=== PATIENT | male | born 1975 | race Caucasian/White ===

== ENCOUNTER 2017-02-27 09:29 | Inpatient (IN) | payer OTHER ==
[2017-02-27] MEDS ORDERED: Ondansetron HCl/PF 4 MG/2 ML Vial ONE (09:44)
[2017-02-27] MEDS ORDERED: Nitroglycerin 0.4 MG TAB (25 Tab Bottle) ONE (09:58)
[2017-02-27 10:08] LABS: #Lymphocytes 0.8 thou/uL (1.20-3.40); #Monocytes 0.7 thou/uL (0.11-0.59); #Neutrophils 11.5 thou/uL (1.40-6.50); %Basophils 0.1 % (0.0-1.0); %Eosinophils 0.3 % (0.0-10.0); %Lymphocytes 6.2 % (21.0-51.0); %Monocytes 5.5 % (0.0-10.0); Hematocrit 53.7 % (42.0-52.0); Mean Platelet Volume 8.7 fL (7.4-10.4); Red Blood Cell (RBC) Count 5.99 mill/uL (4.70-6.10); White Blood Cell (WBC) Count 13.1 thou/uL (4.8-10.8)
[2017-02-27 10:27] LABS: ALT (SGPT) 25 U/L (8-55); AST (SGOT) 51 U/L (5-34); Alkaline Phosphatase 78 U/L (40-150); Anion Gap 18 mmol/L (10-20); BUN (Urea Nitrogen) 20 mg/dL (8.9-20.6); Bilirubin, Total 0.9 mg/dL (0.2-1.2); CK (CPK) 503 U/L (30-200); Calc. Creatinine Clearance 0 mL/min (70-130); Calcium 10.4 mg/dL (7.8-10.44); Carbon Dioxide 26 mmol/L (22-29); Chloride 98 mmol/L (98-107); Estimated GFR-MDRD 46; Globulin 3.8 g/dL (2.4-3.5); Lipase 13 U/L (8-78); Protein, Total 8.5 g/dL (6.0-8.3)
[2017-02-27] MEDS ORDERED: Morphine 2 MG/ML SYRINGE ONE ×2 (10:30→13:24)
--- NOTE | 2017-02-27 10:30 | RAD ---
PORTABLE CHEST: Date: 02/27/17 HISTORY: Chest pain. FINDINGS: Lungs are clear. Heart and mediastinum appear normal. Vascular markings normal. IMPRESSION: Negative portable chest. POS: [facility]
[2017-02-27] MEDS ORDERED: Heparin 5,000 UNITS/ML VIAL ONE (10:38)
[2017-02-27] MEDS ORDERED: Heparin 25,000 units/D5W 500 ML ONE (10:38)
[2017-02-27 11:01] LABS: Troponin I 12.156 ng/mL (< 0.028)
[2017-02-27] MEDS ORDERED: FLU VACC QS2017-18 36 mo. & older 0.5 ML SYRINGE IM ONE (13:15)
[2017-02-27] MEDS ORDERED: Morphine 10 MG/ML VIAL SLOW IVP SCH (13:25)
[2017-02-27] MEDS ORDERED: Ketorolac Tromethamine 30 MG/ML VIAL IVP SCH ×2 (13:30→13:45)
[2017-02-27] MEDS ORDERED: Nitroglycerin 0.4 MG TAB (25 Tab Bottle) SL PRN (14:59)
[2017-02-27] MEDS ORDERED: traMADol HCl 50 MG TAB PO PRN (14:59)
[2017-02-27] MEDS ORDERED: Acetaminophen/Codeine 30-300mg Tablet PO PRN ×2 (14:59)
[2017-02-27] MEDS ORDERED: Sodium Chloride 0.9% 200 ML IV PRN (15:00)
[2017-02-27] MEDS ORDERED: Sodium Chloride 0.9% 1,000 ML IV SCH (15:00)
[2017-02-27] MEDS ORDERED: Iopamidol 370 76% 100 ML VIAL ONE (15:53)
--- NOTE | 2017-02-27 16:14 | HP ---
REASON FOR ADMISSION: Chest pain, abnormal EKG, subsequently found to have increased troponin level . HISTORY OF PRESENT ILLNESS: Mr. Mary is a pleasant 41-year-old gentleman. He has been having ray st pain off and on for several weeks, but has been much more intense recently, this morning at about 4 in the morning. He suddenly had the onset of severe pain, which was not resolved. He came here to the emergency room. The EKG showed some ST elevation in lead II, III, AVF, as well as V5 and V6. This somewhat concave up with mild VT depression in lead II and III. Initial suspici on was that this may be pericarditis. He was given colchicine and Toradol. The patient states that when he laid down, it did not make any difference; when he took a deep breath, it did make a differ ence in the pain. The patient did not get relief initially with the Toradol or the colchicine. Tro ponin level became elevated and the decision was made to take him to the cardiac catheterization lab to look at the coronary arteries and make sure there is no coronary obstruction, resulting in EKG c hanges and chest pain along with troponin rise. PAST MEDICAL HISTORY: The patient has been stable active and healthy. No major illnesses. MEDICATIONS: No medicines. SOCIAL HISTORY: No smoking. Rare tobacco use. He initially did report the chest pain in the 7 out of scale of 10. He said, as mentioned, he had been doing okay until this morning when the pain became severe. REVIEW OF SYSTEMS: Constitutional: No significant weight gain or loss. Vision: No changes. Hear ing: No changes. Pulmonary: No cough or wheezing. Gastrointestinal: No nausea, vomiting, or vero rrhea. Skin: No rashes. Neurologic: No unilateral weakness or numbness. Psychiatric: No unusua l depression or anxiety. Hematologic: No unusual bruising. Genitourinary: No burning with urinat ion. PAST SURGICAL HISTORY: No significant past history. PAST SURGICAL HISTORY: No cardiac operations or procedures. MEDICATION: None prior to admission. PHYSICAL EXAMINATION VITAL SIGNS: Initially blood pressure was 138/86 and pulse was 80. HEENT: Eyes, sclerae nonicteric. Mouth mucous membranes moist. NECK: Supple. No lymphadenopathy. LUNGS: Clear. No wheezing, rales or rhonchi. CARDIAC: Normal S1. Normal S2. There is no murmur, rub or gallop. ABDOMEN: Soft, nontender. No hepatosplenomegaly. EXTREMITIES: Warm and dry. No clubbing, cyanosis or edema. Peripheral pulses are all intact in th e feet. LABORATORY AND X-RAY FINDINGS: EKG as outlined above. PERTINENT LABORATORY: The patient did have increased troponin and as mentioned, it was 10.7 and a f ollow up is 12.15. ASSESSMENT: 1. Chest pain, waxing and waning for several days. 2. Relatively low risk factor profile for coronary artery disease. 3. Evidence of myocardial injury based on increased troponin levels. 4. EKG which was more compatible with pericarditis, but the patient, as mentioned, did have increas ed troponin levels with ongoing pain and the pain was not a typical of pericarditis in terms of no v ariation with a breath or supine or sitting. PLAN: Decided to go to the catheterization lab to see the patient had coronary disease. Discussed risks of stroke, heart attack, IODINE allergy, loss of blood supply to the leg or kidney, stent thro mbosis, stent restenosis in the event stenting is needed. The patient understood and wished to proc eed. ADDENDUM: The patient was taken to [facility]. There was no obstructive coronary artery disease. Th e patient appears to have pericarditis and myocarditis. The apex and distal inferior wall are hypok inetic.
[2017-02-27] MEDS: Ketorolac Tromethamine 30 MG/ML VIAL IVP SCH ×2 (17:59→23:29)
[2017-02-27] MEDS ORDERED: Colchicine 0.6 MG TAB PO SCH ×2 (18:00→18:15)
[2017-02-28] MEDS ORDERED: Loperamide HCl 2 MG CAP PO SCH (03:30)
[2017-02-28] MEDS: Ketorolac Tromethamine 30 MG/ML VIAL IVP SCH (05:44)
[2017-02-28] MEDS ORDERED: Colchicine 0.6 MG TAB PO SCH (09:00)
--- NOTE | 2017-02-28 11:31 | PRG ---
DATE OF SERVICE: 02/28/2017 SUBJECTIVE: Mr. Mary is doing much better today. His chest pain went away yesterday evening arou nd 6:00. He just feels fatigued and washed out today. He does had diarrhea and abdominal discomfort. I susp ect it is probably the colchicine. PHYSICAL EXAMINATION: VITAL SIGNS: Blood pressure 106/64, pulse the most recent is recorded at 104. LUNGS: Clear. CARDIAC: Normal S1 and S2. ABDOMEN: Soft, nontender. EXTREMITIES: No edema. ASSESSMENT: 1. Pericarditis with myocardial involvement (myocarditis). 2. Renal insufficiency/acute with an estimated GFR yesterday was 1.68. 3. Nausea and diarrhea, probably related to colchicine. PLAN: 1. Change from Toradol to Etodolac. 2. Recheck creatinine. 3. Recheck a troponin level. 4. Reduce colchicine. 5. Probably home tomorrow if doing well.
[2017-02-28 11:33] LABS: Troponin I 8.789 ng/mL (< 0.028)
[2017-02-28 11:34] LABS: Anion Gap 15 mmol/L (10-20); BUN (Urea Nitrogen) 17 mg/dL (8.9-20.6); Calc. Creatinine Clearance 115 mL/min (70-130); Calcium 8.8 mg/dL (7.8-10.44); Carbon Dioxide 20 mmol/L (22-29); Chloride 103 mmol/L (98-107); Estimated GFR-MDRD 83
[2017-02-28 11:36] LABS: Band 13 % (5-11); Mean Platelet Volume 8.9 fL (7.4-10.4); Neutrophil 69 % (42-75); Reactive Lymphocytes 2 % (0-10); Red Blood Cell (RBC) Count 5.33 mill/uL (4.70-6.10); White Blood Cell (WBC) Count 9.2 thou/uL (4.8-10.8)
[2017-02-28] MEDS ORDERED: Famotidine 20 MG TAB PO SCH (12:15)
[2017-02-28 12:31] VITALS: BMI 25.2
[2017-02-28] MEDS: Etodolac ER 400 mg Tablet PO SCH (12:53)
[2017-02-28] MEDS: Diphenoxylate HCl/Atropine Tablet PO PRN (16:13)
[2017-02-28] MEDS: Loperamide HCl 2 MG CAP PO PRN (18:00)
[2017-02-28] MEDS: Colchicine 0.6 MG TAB PO SCH (20:05)
[2017-02-28] MEDS: Famotidine 20 MG TAB PO SCH (20:06)
[2017-02-28] MEDS: Ondansetron HCl/PF 4 MG/2 ML Vial IVP PRN (20:06)
[2017-03-01] MEDS: Ondansetron HCl/PF 4 MG/2 ML Vial IVP PRN ×2 (04:50→12:19)
[2017-03-01] MEDS: Diphenoxylate HCl/Atropine Tablet PO PRN ×2 (05:02→12:19)
[2017-03-01 06:07] LABS: Critical Call Chem Troponin I RESULT DECREASING; Troponin I 5.247 ng/mL (< 0.028)
[2017-03-01] MEDS ORDERED: Metoprolol Tartrate 25 MG TAB PO SCH ×3 (09:30→21:00)
--- NOTE | 2017-03-01 09:49 | PRG ---
DATE OF SERVICE: 03/01/2017 SUBJECTIVE: Mr. Mary had a very rough night last night. He had severe diarrhea and nausea, vomiting, unable to keep much down. He is not having chest pain , just feels worn out. PHYSICAL EXAMINATION: VITAL SIGNS: Heart rate is 110-115, it is sinus tachycardia. Blood pressure 110/72. LUNGS: Clear. CARDIAC: Tachycardic at rest. ABDOMEN: Soft, nontender. EXTREMITIES: No edema. ASSESSMENT: 1. Pericarditis/myocarditis. 2. Diarrhea, probably related to colchicine, persisted despite reducing the dose of colchicine. 3. Probably volume depleted. 4. Sinus tachycardia. PLAN: 1. Give him intravenous fluid. 2. Start low dose beta blockers. 3. Stop colchicine. 4. Discontinued anti-inflammatories.
[2017-03-01] MEDS: Loperamide HCl 2 MG CAP PO PRN (10:16)
[2017-03-01] MEDS: Sodium Chloride 0.9% 1,000 ML IV SCH ×2 (10:19→22:27)
[2017-03-01] MEDS: Famotidine 20 MG TAB PO SCH ×2 (10:20→22:27)
--- NOTE | 2017-03-01 10:23 | PQF ---
CLINICAL DOCUMENTATION IMPROVEMENT CLARIFICATION FORM: ICD-10 Updated PLEASE DO AN ADDENDUM TO THE PROGRESS NOTE WITH ANY DOCUMENTATION UPDATES OR ADDITIONS AND CARRY THROUGH TO DC SUMMARY. THANK YOU. DATE: 03/01/17 ATTN: Dr. Linder 03/03/17 Please exercise your independent, professional judgment in responding to the clarification form. Clinical indicators are provided on the bottom of this form for your review Please check appropriate box(s): [ ] Acute Renal Failure (ARF) / Acute Kidney Injury (SUSHIL) (Please specify associated condition, if applicable) [ ] Other Etiology or underlying conditions related to the diagnosis of ARF/ SUSHIL: [ ] Acute on Chronic Renal Failure please specify Stage of CKD (see below) [ ] Other diagnosis [ ] Unable to determine National Kidney Foundation Guidelines for CKD Staging Stage I Kidney damage with normal or increased GFR GFR > 90 Stage II Kidney damage with mildly decreased GFR GFR 60-89 Stage III Kidney damage with moderately decreased GFR GFR 30-59 Stage IV Kidney damage with severely decreased GFR GFR 16-29 Stage V Kidney failure GFR <15 ESRD End Stage Renal Disease On dialysis For continuity of documentation, please document condition throughout progress notes and discharge summary. Thank You. CLINICAL INDICATORS - SIGNS / SYMPTOMS / LABS 02/27 02/28 LABS: CREATININE 1.68 1.00 ESTIMATED GFR 46 83 PN 02/28: RENAL INSUFFICIENCY/ ACUTE RISKS: ED RECORD: PRESENT TO ED C/O NAUSEA & VOMITING ASSOCIATED W/ CHEST PAIN. PN 02/28: NAUSEA & DIARRHEA, PROBABLY RELATED TO COLCHICINE. TREATMENT: CPOE 03/01: NS IV 120 MLS/HR PN 02/28: RECHECK CREATININE Thank you, Fabby (This form is maintained as a part of the permanent medical record) 2015 [employer] All Rights Reserved Fabby Quinones RN, BSN [email or web address] Office: [phone] [facility]
[2017-03-01] MEDS: Etodolac ER 400 mg Tablet PO SCH (13:49)
[2017-03-01] MEDS: Colchicine 0.6 MG TAB PO SCH (16:52)
[2017-03-02] MEDS: Diphenoxylate HCl/Atropine Tablet PO PRN ×2 (04:19→19:00)
[2017-03-02] MEDS: Sodium Chloride 0.9% 1,000 ML IV SCH ×2 (06:25→10:16)
[2017-03-02] MEDS ORDERED: Sodium Chloride 0.9% 1,000 ML IV SCH (08:02)
[2017-03-02] MEDS ORDERED: Potassium Chloride 20 MEQ TAB PO SCH ×4 (08:30→13:00)
[2017-03-02] MEDS: Famotidine 20 MG TAB PO SCH ×2 (10:15→21:30)
[2017-03-02 10:35] LABS: Anion Gap 11 mmol/L (10-20); BUN (Urea Nitrogen) 13 mg/dL (8.9-20.6); Calc. Creatinine Clearance 130 mL/min (70-130); Calcium 8.5 mg/dL (7.8-10.44); Carbon Dioxide 21 mmol/L (22-29); Chloride 102 mmol/L (98-107); Estimated GFR-MDRD Greater than 90; Magnesium 1.9 mg/dL (1.6-2.6)
--- NOTE | 2017-03-02 10:43 | PRG ---
DATE OF SERVICE: 03/02/2017 SUBJECTIVE: Mr. Mary is doing better today, but still having diarrhea at almost every hour, signi ficant amounts, despite being off the colchicine now for coming up on 48 hours. The diarrhea also preceded the colchicine. His chest is better and he feels better. OBJECTIVE: VITAL SIGNS: Blood pressure 112/80, and pulse in the 90s. LUNGS: Clear. CARDIAC: Normal S1 and S2. ABDOMEN: Soft and nontender. EXTREMITIES: No edema. ASSESSMENT: 1. Pericarditis improved. 2. Diarrhea, persistent. PLAN: 1. Check potassium and magnesium. 2. Consult Gastroenterology to see if there are any other testing should be done. 3. The patient has been off colchicine now for coming up for 48 hours, only received a half a dose.
[2017-03-02] MEDS ORDERED: Magnesium 2 GM/NS 0.9% 100 ML 2 GM in Premix Bag 1 BAG IVPB SCH (12:00)
[2017-03-02] MEDS: Loperamide HCl 2 MG CAP PO PRN ×2 (12:46→21:30)
[2017-03-02] MEDS ORDERED: Magnesium 2 GM/NS 0.9% 50 ML 2 GM in Premix Bag 1 BAG IVPB SCH (13:00)
[2017-03-02] MEDS: Etodolac ER 400 mg Tablet PO SCH (13:15)
[2017-03-02] MEDS: Potassium Chloride 20 MEQ TAB PO SCH (19:00)
[2017-03-02] MEDS: Ondansetron HCl/PF 4 MG/2 ML Vial IVP PRN (21:32)
[2017-03-02] MEDS ORDERED: Acetaminophen 325 MG TAB PO PRN (21:48)
[2017-03-03] MEDS: Diphenoxylate HCl/Atropine Tablet PO PRN (03:43)
[2017-03-03 03:48] VITALS: TEMP 98.8
[2017-03-03 05:53] LABS: Anion Gap 11 mmol/L (10-20); BUN (Urea Nitrogen) 8 mg/dL (8.9-20.6); Calc. Creatinine Clearance 140 mL/min (70-130); Calcium 8.7 mg/dL (7.8-10.44); Carbon Dioxide 23 mmol/L (22-29); Chloride 104 mmol/L (98-107); Estimated GFR-MDRD Greater than 90
--- NOTE | 2017-03-03 06:12 | CON ---
DATE OF CONSULTATION: 03/02/2017 REASON FOR CONSULTATION: Diarrhea. HISTORY OF PRESENT ILLNESS: Mr. Mary is a pleasant 41-year-old, who was admitted to the hospital on 02/27/2017. He came to the emergency room with chest pain and abnormal EKG and was found to have increased troponin, and was diagnosed with pericarditis. Apparently he had been having some chest pain on and off for a few weeks and became very severe on the morning of admission on Tuesday. He ca me to the emergency room where he has some ST elevations. This was felt to pericarditis. He was st arted on colchicine and Toradol with elevated troponins and no improvement with those medication. Ana herman went to the catheterization lab and had normal coronaries. I have been asked to see him because h nnamdi in the hospital, he has had diarrhea up to 30 times per day. This was felt related to the colch icine, which is stopped. He continued to have some diarrhea today, but it would improve with gettin g Lomotil and Imodium. Now he is having bowel movements much less frequently. He did have diarrhea starting acutely on Tuesday. He notes that evening, he did not feel th at great, maybe a little bit flu-like. His had been ill with fever and chills, but she had no other illness. On Tuesday, he went to the office, worked for few hours, started feeling worse and ca me home, that is when he began to have severe diarrhea and vomiting. This lasted through Tuesday a then Tuesday, the chest pain began and he came to the hospital. He denies any sick contacts antec edent to admission, history of ulcerative colitis or Crohn's. No arthralgias, myalgias, or rashes. He denies any overt exposures. PAST MEDICAL HISTORY: Negative. PAST SURGICAL HISTORY: Arm surgery. MEDICATIONS AT HOME: None. SOCIAL HISTORY: Negative for smoking, rare tobacco use, rare alcohol use. FAMILY HISTORY: Mother had diverticular disease. REVIEW OF SYSTEMS: Negative for dysphagia, odynophagia, neurologic disease, autoimmune diseases, ra shes. MEDICATIONS HERE: Lomotil 1 q.6 hours p.r.n., etodolac 400 q.12 hours, Pepcid, Imodium 2 q.8 hours p.r.n., metoprolol, Zofran, normal saline at 100 an hour. PHYSICAL EXAMINATION: GENERAL: Patient is resting comfortably in bed. VITAL SIGNS: Pulse 95, temperature 97, respirations 17, blood pressure 119/82. LUNGS: Clear. HEART: Regular rate and rhythm without clicks or murmurs. ABDOMEN: Soft, nontender. There is no palpable hepatosplenomegaly. There is no rebound. There is no guarding. SKIN: Without rash or lesions. LABORATORY STUDIES: White count 9.2 on 02/28/2017, hemoglobin was 15, platelet count was 122. Sodi um is 131, potassium 3.4, BUN and creatinine are 13 and 0.8, sugar is 150, troponin was high as 12, now 5.2 on 03/01/2017. Microbiology, stools negative for Clostridium difficile. ASSESSMENT: Acute pericarditis per Cardiology with antecedent episode of acute diarrheal and vomiti ng on suggestive of viral illness. This is likely the same illness which caused the perica rditis, occasionally bacterial infection with Campylobacter can cause pericarditis, although usually that causes bloody diarrhea and fever which he does not have. His had an illness as well with fever and viral-like symptoms, myalgias or arthralgias. RECOMMENDATIONS: 1. Stool studies for routine culture and symptomatic care with Lomotil and Imodium. 2. Lactose-free diet. If patient continues to improve, hopefully he can go home tomorrow.
[2017-03-03] MEDS: Sodium Chloride 0.9% 1,000 ML IV SCH ×2 (06:58→07:00)
[2017-03-03] MEDS: Ondansetron HCl/PF 4 MG/2 ML Vial IVP PRN (07:04)
[2017-03-03] MEDS: Loperamide HCl 2 MG CAP PO PRN (07:04)
[2017-03-03] MEDS: Potassium Chloride 20 MEQ TAB PO SCH (09:14)
--- NOTE | 2017-03-03 09:59 | DIS ---
DATE OF ADMISSION: 02/27/2017 DATE OF DISCHARGE: 03/03/2017 FINAL DIAGNOSES: 1. Pericarditis. 2. Myocarditis. 3. Diarrhea. 4. Hypokalemia, secondary to diarrhea. MEDICATIONS AT TIME OF DISCHARGE: 1. Lodine XL 400 mg a day for 14 days. 2. Zofran 4 mg twice a day if needed for nausea. 3. Potassium 10 mEq twice a day for a week. 4. Imodium 2 mg every 8 hours as needed for diarrhea. 5. Toprol-XL 50 mg 1 a day. 6. Colchicine 0.6 mg half pill twice a day, wait 1 week to start. Please see admission note for full details. Briefly, Mr. Mary is a 41-year-old man admitted with severe chest pain and increased troponin levels. The initial suspicion was this is probably pericar ditis, but the pain did not resolve promptly with anti-inflammatory medicine and he had a markedly i ncreased troponin level; therefore, he was taken to cardiac catheterization lab where he was found t o have normal coronary arteries. The patient, otherwise, was admitted to the hospital. He was found to have a peak troponin of 12.15 6. At the time of cardiac catheterization, he had a wall motion abnormality on the left ventriculog porfirio. Patient's main problem, after he arrived here, was severe diarrhea. We thought perhaps colchicine w as playing a role. Therefore, reduced the colchicine dose and stopped, but the diarrhea persisted. Ultimately, Dr. Raymond was consulted yesterday, who recommended continuing hydration, Lomotil, and s upportive care. Some testing was done for the diarrhea. The laboratory did reveal negative Campylobacter test. Neg ative C. difficile test. The patient will be released home and see me in about a month. Echocardiogram revealed that he has normal left ventricular function. I did give him beta blockers in view of the myocarditis, and we w ill try to take colchicine as outlined above, and I told him that would reduce the risk of recurrenc e.
--- NOTE | 2017-03-03 12:14 | PRG ---
DATE OF SERVICE: 03/03/2017 Mr. Mary is having loose stools. He had about 3 last night, 2 today, no blood. PHYSICAL EXAMINATION: VITAL SIGNS: Temperature 98, pulse 103, blood pressure 120/76. LUNGS: Clear. HEART: Regular rate and rhythm. ABDOMEN: Nontender. Stool was negative for Campylobacter routine cultures. C. diff was negative as well. ASSESSMENT: Diarrheal illness, this is antecedent and taking colchicine. Colchicine could have exa cerbated it; however, he does note today that he about 3 weeks ago was in [place] was drinking fresh stream water, but he did not get sick or have the diarrhea or the pericarditis for 3 weeks after th at. That makes that an unlikely or etiology of his symptoms, but nonetheless something to be checke d. PLAN: 1. Will check Giardia. 2. Agree he can go home with Imodium 2 tablets for the first loose stool today and then one after e ach loose stool up to 8 a day. 3. I asked him to followup with me in the office in 1 week. I asked the nurse to start giving his stool Giardia antigen before he leaves. He does not have to stay and wait for result.
[2017-03-03 12:23] VITALS: BP 109/80
[2017-03-03] MEDS: Etodolac ER 400 mg Tablet PO SCH (14:39)
--- NOTE | 2017-03-04 15:52 | EKG ---
Test Reason : Blood Pressure : / mmHG Vent. Rate : 114 BPM Atrial Rate : 114 BPM P-R Int : 134 ms QRS Dur : 098 ms QT Int : 354 ms P-R-T Axes : 044 044 018 degrees QTc Int : 487 ms Sinus tachycardia Nonspecific ST and T wave abnormality Abnormal ECG When compared with ECG of 27-FEB-2017 10:40, (Unconfirmed) ST no longer elevated in Inferior leads T wave inversion now evident in Inferior leads Nonspecific T wave abnormality now evident in Lateral leads Confirmed by DR. Rubén ERICKSON ([id number]) on 03/04/2017 3:52:05 PM Referred By: DRE Confirmed By:DR. Rubén ERICKSON
--- NOTE | 2017-03-05 18:07 | EKG ---
Test Reason : CHEST PAIN Blood Pressure : / mmHG Vent. Rate : 078 BPM Atrial Rate : 078 BPM P-R Int : 128 ms QRS Dur : 090 ms QT Int : 380 ms P-R-T Axes : 075 056 061 degrees QTc Int : 433 ms Normal sinus rhythm Possible Left atrial enlargement ST elevation consider inferolateral injury or acute infarct No STEMI Abnormal ECG Confirmed by JOVANNY Andrade, YUE ([id number]), associate entertainment editor YOVANNY CALIX ([id number]) on 03/05/2017 6:06:57 PM Referred By: Confirmed By:YUE PETTY M.D.
--- NOTE | 2017-03-05 18:12 | EKG ---
Test Reason : Blood Pressure : / mmHG Vent. Rate : 085 BPM Atrial Rate : 085 BPM P-R Int : 122 ms QRS Dur : 094 ms QT Int : 378 ms P-R-T Axes : 066 050 058 degrees QTc Int : 449 ms Normal sinus rhythm ST elevation consider inferolateral injury or acute infarct Concern ST elevation, no flattening or recipocal [place] depressive No changes Possible Inferior/Posterior TX Abnormal ECG Confirmed by YUE PETTY M.D. ([id number]), fan mail editor YOVANNY CALIX ([id number]) on 03/05/2017 6:12:15 PM Referred By: Confirmed By:YUE PETTY M.D.
== END 2017-03-03 14:37 | disposition home or self-care (01) | DRG 287 ==
LOC: ERS 09:29 → CCL 12:22 → 2NO 12:23
PROVIDERS: ADMIT Internal Medicine Cardiovascular Disease; ATTEND Internal Medicine Cardiovascular Disease
PROC: 4A023N7 Measurement of Cardiac Sampling and Pressure, Left Heart, Percutaneous Approach (ICD-10-PCS; principal; 2017-02-27)
PROC: B2111ZZ Fluoroscopy of Multiple Coronary Arteries using Low Osmolar Contrast (ICD-10-PCS; 2017-02-27)
PROC: B2151ZZ Fluoroscopy of Left Heart using Low Osmolar Contrast (ICD-10-PCS; 2017-02-27)
DX: I31.9 Disease of pericardium, unspecified (principal); I51.4 Myocarditis, unspecified; R19.7 Diarrhea, unspecified; E87.6 Hypokalemia; E86.9 Volume depletion, unspecified; R00.0 Tachycardia, unspecified; N28.9 Disorder of kidney and ureter, unspecified
CPT/HCPCS: 36415; 36416; 71010; 76942; 80048; 80053; 82553; 83690; 83735; 84484; 85025; 87015; 87045; 87046; 87324; 87328; 87329; 87449; 87798; 87899; 90471; 90682; 93005; 93010; 93306; 93458; 94760; 96361; 96374; 96375; 99152; 99153; A4216; C1769; G0008; J1644; J1885; J2270; J2405; J3475; Q2036

== ENCOUNTER 2018-09-16 20:16 | Emergency (ER) | payer OTHER ==
[2018-09-16] MEDS ORDERED: predniSONE 20 MG TAB ONE (20:50)
== END 2018-09-16 21:00 | disposition home or self-care (01) ==
LOC: SCSER 20:16
DX: T63.441A Toxic effect of venom of bees, accidental (unintentional), initial encounter (principal); E03.9 Hypothyroidism, unspecified; Z79.899 Other long term (current) drug therapy
CPT/HCPCS: 99282; J7512